=== PATIENT | female | born 1980 | race Caucasian/White ===

== ENCOUNTER 2017-01-14 15:37 | Emergency (ER) | payer SELFPAY ==
[~2017-01-14] VITALS: Ht 167.6 cm; Wt 70.3 kg
[~2017-01-14 15:37] MED LIST: DOCU-27 PO; Diltiazem Hcl PO; OXYC-323 PO
--- NOTE | 2017-01-14 16:13 | RAD ---
Right foot, 3 views, 01/14/2017: History: Fall, pain There is a nondisplaced fracture of the proximal aspect of the distal phalanx of the great toe. The fracture line appears to involve the IP joint. No other acute fracture or dislocation is identified. Surgical screws are again noted in the talus. There are mild degenerative changes at the ankle joint. IMPRESSION: Acute nondisplaced fracture of the distal phalanx of the great toe.
[2017-01-14 17:00] VITALS: BP 139/74
[2017-01-14] MEDS ORDERED: HYDR-971 PO (17:44)
--- NOTE | 2017-01-14 17:44 | PHYS DOC ---
Past Medical History Past Medical History: Anxiety, Kidney Stone Additional Past Medical Histor: chronic shoulder pain, SICK SINUS SYNDROME Past Surgical History: Cholecystectomy, Pacemaker, Other Additional Past Surgical Histo: R. ANKLE, R KNEE Alcohol Use: Occasionally Drug Use: Marijuana Adult General Chief Complaint Chief Complaint: FOOT INJURY PAIN HPI HPI Patient is a 36 year old female with history of anxiety who presents today with right great toe pain that began last night after she fell down 5 steps. Patient denies any loss of consciousness. Review of Systems Review of Systems Constitutional: Denies fever or chills [] Eyes: Denies change in visual acuity, redness, or eye pain [] Musculoskeletal: right great toe pain Integument: Denies rash or skin lesions [] Neurologic: Denies headache, focal weakness or sensory changes [] Endocrine: Denies polyuria or polydipsia [] Allergies Allergies Allergies Coded Allergies Type Severity Reaction Last Updated Verified naproxen Allergy Intermediate stomach pain 12/10/14 Yes Physical Exam Physical Exam Constitutional: Well developed, well nourished, no acute distress, non-toxic appearance. [] HENT: Normocephalic, atraumatic, bilateral external ears normal, oropharynx moist, no oral exudates, nose normal. [] Skin: Warm, dry, no erythema, no rash. [] Back: No tenderness, no CVA tenderness. [] Extremities: Right great toe with ecchymoses. Tenderness on palpation of the right great toe. Limited range of motion to the right great toe due to pain. +2 right pedal pulse. Cap refill less than 2 seconds the right lower extremity. Sensation intact to the right lower extremity. Neurologic: Alert and oriented X 3, normal motor function, normal sensory function, no focal deficits noted. [] Psychologic: Affect normal, judgement normal, mood normal. [] Current Patient Data Vital Signs Vital Signs Date Time Temp Pulse Resp B/P Pulse Ox O2 Delivery O2 Flow Rate FiO2 01/14/17 17:00 98.3 85 16 98 Room Air 98.3 EKG EKG [] Radiology/Procedures Radiology/Procedures []PROCEDURE: FOOT RIGHT 3V Right foot, 3 views, 01/14/2017: History: Fall, pain There is a nondisplaced fracture of the proximal aspect of the distal phalanx of the great toe. The fracture line appears to involve the IP joint. No other acute fracture or dislocation is identified. Surgical screws are again noted in the talus. There are mild degenerative changes at the ankle joint. IMPRESSION: Acute nondisplaced fracture of the distal phalanx of the great toe. DICTATED and SIGNED BY: SIMI ATKINSON MD DATE: 01/14/17 1609 CC: HOLLIS URRUTIA MD; NORA LOPEZ APRN ~ Course & Med Decision Making Course & Med Decision Making Pertinent Labs and Imaging studies reviewed. (See chart for details) Patient is in the ED with right great toe pain after falling last night. X-rays of the right foot interpreted by radiologist were noted for an Acute nondisplaced fracture of the distal phalanx of the great toe. Right great toe sergio taped to the second toe and patient was provided an orthopedic shoe by the ED RN. Neurovascular exam done by me is normal, cap refill less than 2 seconds. Ice elevation encouraged. Follow-up with orthopedic doctor in 1 day. Dragon Disclaimer Dragon Disclaimer This electronic medical record was generated, in whole or in part, using a voice recognition dictation system. Departure Departure Impression: Primary Impression: Fracture of great toe, right, closed Disposition: HOME, SELF-CARE Condition: STABLE Referrals: HOLLIS URRUTIA MD (PCP) KELTON HERNANDEZ MD Follow-up with him in 1 day Patient Instructions: Toe Fracture with Rehab-Sports[facility] Additional Instructions: You have fracture of the right great toe. Ice and elevate the extremity. Follow- up with the provided orthopedic doctor by calling his office tomorrow. Return to the ED for any concerning symptoms. Scripts Hydrocodone/Apap 5-325 (Penitas 5-325 Tablet)1 Each Tablet1-2 Tab PO Q4-6HRS #20 TAB Prov:NORA LOPEZ APRN 01/14/17 Problem Qualifiers Primary Impression: Fracture of great toe, right, closed Encounter type: initial encounter Phalanx: proximal Fracture alignment: nondisplaced Qualified Code: S92.414A - Nondisplaced fracture of proximal phalanx of right great toe, initial encounter for closed fracture NORA LOPEZ APRN Jan 14, 2017 17:45
[2017-01-14] MEDS ORDERED: HYDROCODONE/APAP 5/325MG TABLET. PO ONE (17:45)
== END 2017-01-14 18:01 | disposition home or self-care (01) ==
LOC: ER 15:37
DX: S92.424A Nondisplaced fracture of distal phalanx of right great toe, initial encounter for closed fracture (principal); F41.9 Anxiety disorder, unspecified; G89.29 Other chronic pain; F12.10 Cannabis abuse, uncomplicated; I49.5 Sick sinus syndrome; Z87.442 Personal history of urinary calculi; Z96.89 Presence of other specified functional implants; Z88.8 Allergy status to other drugs, medicaments and biological substances; W10.9XXA Fall (on) (from) unspecified stairs and steps, initial encounter; Y93.89 Activity, other specified; Y92.89 Other specified places as the place of occurrence of the external cause; Y99.8 Other external cause status
CPT/HCPCS: 73630; 99284-25